=== PATIENT | male | born 1965 | race Caucasian/White ===

== ENCOUNTER 2016-10-21 12:06 | Outpatient (CLI) ==
[2016-10-21 13:49] LABS: BASOPHILS % (AUTO) 0.6 % (0.0-3.0); EOSINOPHILS # (AUTO) 0.1 K/ul (0.0-0.7); EOSINOPHILS % (AUTO) 1.3 % (0.0-7.0); HEMOGLOBIN 16.3 g/dl (14.0-18.0); IMMATURE GRANULOCYTE % (AUTO) 0.4 % (0.0-5.0); LYMPHOCYTES # (AUTO) 2.5 K/uL (0.60-3.4); LYMPHOCYTES % (AUTO) 35.4 (10.0-50.0); MEAN CORPUSCULAR HEMOGLOBIN 27.6 pg (27.0-31.0); MEAN CORPUSCULAR VOLUME 81.2 fl (80.0-94.0); MONOCYTES # (AUTO) 0.3 K/uL (0.4-2.0); MONOCYTES % (AUTO) 4.5 (0-10); NEUTROPHILS # (AUTO) 4.1 K/ul (2.0-6.9); NEUTROPHILS % (AUTO) 57.8; PLATELET COUNT 192 10^3/uL (140-440); RED BLOOD COUNT 5.91 10^6/ul (4.70-6.10); WHITE BLOOD COUNT 7.11 K/ul (4.2-10.2)
[2016-10-21 14:05] LABS: ALBUMIN 3.9 g/dL (3.4-5.0); ALBUMIN/GLOBULIN RATIO 0.98; ANION GAP 15.1; BILIRUBIN,TOTAL 0.39 mg/dL (0.00-1.20); BUN/CREATININE RATIO 13.25; CALCIUM 9.4 mg/dL (8.2-10.2); CHOL/HDL RATIO 5.5 (4.5-6.4); CREATININE 0.83 mg/dL (0.60-1.10); POTASSIUM 4.1 mmol/L (3.5-5.1); TOTAL PROTEIN 7.9 g/dL (6.4-8.2)
[2016-10-21 14:36] LABS: BILIRUBIN,URINE Negative (NEGATIVE); KETONES,URINE Negative (NEGATIVE); LEUKOCYTE ESTERASE ,URINE Negative (NEGATIVE); NITRITE,URINE Negative (NEGATIVE); PROTEIN,URINE Negative (NEGATIVE); URINE, BLOOD Trace-intact (NEGATIVE)
[2016-10-21 15:16] LABS: ADD URINE MICROSCOPIC YES
== END 2016-10-21 12:07 | disposition home or self-care (01) ==
LOC: LAB 12:06
PROVIDERS: ATTEND General Practice
DX: E88.81 Metabolic syndrome and other insulin resistance (principal); I10 Essential (primary) hypertension; Z79.899 Other long term (current) drug therapy
CPT/HCPCS: 36415; 80053; 80061; 81001; 85025

== ENCOUNTER 2017-12-28 12:42 | Emergency (ER) ==
[2017-12-28 12:48] VITALS: BP 155/99; TEMP 97.7; BMI 40.8
--- NOTE | 2017-12-28 14:25 | ED.PDOC ---
General ED Provider: Dr. ANTIONE LUA Chief Complaint: Tooth Problem Stated Complaint: pain to right upper teeth and gums. states today woke with swelling. Time Seen by Physician: 13:10 Mode of Arrival: Walk-In Information Source: Patient Exam Limitations: No limitations [facility] Nursing and Triage Documentation Reviewed and Agree: Yes Does patient meet sepsis criteria?: No If yes, has appropriate treatment been initiated?: No System Inflammatory Response Syndrome: Not Applicable Sepsis Protocol: For patient's 13 years and over: Temp is 96.8 and below OR 101 and greater Pulse >90 BPM Resp >20/minute Acutely Altered Mental Status Are patient's symptoms suggestive of a new infection, such as: -Pneumonia -Skin, Soft Tissue -Endocarditis -UTI -Bone, Joint Infection -Implantable Device -Acute Abdominal Infection -Wound Infection -Meningitis -Blood Stream Catheter Infection -Unknown EENT Complaint Exam - Dental/Oral Complaint/Exam Mechanism of Injury: No known trauma Symptoms Are: Still present Timing: Constant Initial Severity: Moderate Current Severity: Mild Character: Reports: Dull, Aching Aggravating: Reports: Cold, Chewing Alleviating: Reports: Cold, OTC Meds Associated Signs and Symptoms: Reports: Swelling Related History: Reports: Similar episode Cardiac Risk Factors: Reports: None Dental/Oral Surgical History: Reports: None Tooth Findings: Present: Percussion tenderness Cervical Lymphadenopathy Present: No Facial Swelling Present: No Dysphagia Present: No Drooling Present: No Asymmetrical Tonsillar Swelling Present: No Uvula Midline: No Olga Lidia-tonsillar Fluctuence: No Trismus Present: No Palatal Petechiae Present: No Scarlatinaform Rash Present: No Lesions: Absent: Lip, Gums [place]: Absent: Lip, Gums Vesicles: Absent: Lip, Gums Differential Diagnoses: Dental Abcess, Odontogenic Pain, Periodontic Disease Review of Systems - Review Of Systems Constitutional: Reports: No symptoms Eyes: Reports: No symptoms Ears, Nose, Mouth, Throat: Reports: No symptoms Respiratory: Reports: No symptoms Cardiac: Reports: No symptoms GI: Reports: No symptoms : Reports: No symptoms Musculoskeletal: Reports: No symptoms Skin: Reports: No symptoms Neurological: Reports: No symptoms Endocrine: Reports: No symptoms Hematologic/Lymphatic: Reports: No symptoms All Other Systems: Reviewed and Negative Past Medical History - Past Medical History Previously Healthy: Yes Endocrine: Reports: None Cardiovascular: Reports: None Respiratory: Reports: None Hematological: Reports: None Gastrointestinal: Reports: None Genitourinary: Reports: None Neuro/Psych: Reports: None Musculoskeletal: Reports: None Cancer: Reports: None - Surgical History General Surgical History: Reports: None - Family History Family History: Reports: None - Social History Smoking Status: Current every day smoker Hx Substance Use: No Alcohol Screening: None Physical Exam - Physical Exam Appearance: Well-appearing, No pain distress, Well-nourished Eyes: XENIA, EOMI, Conjunctiva clear ENT: Ears normal, Nose normal, Oropharynx normal, Erythema (mouth and dental pain ) Respiratory: Airway patent, Breath sounds clear, Breath sounds equal, Respirations nonlabored Cardiovascular: RRR, Pulses normal, No rub, No murmur GI/: Soft, Nontender, No masses, Bowel sounds normal, No Organomegaly Musculoskeletal: Normal strength, ROM intact, No edema, No calf tenderness Skin: Warm, Dry, Normal color Neurological: Sensation intact, Motor intact, Reflexes intact, Cranial nerves intact, Alert, Oriented Psychiatric: Affect appropriate, Mood appropriate Critical Care Note - Critical Care Note Total Time (mins): 0 Course - Course Hematology/Chemistry: 12/28/17 14:55 12/28/17 14:55 Vital Signs: Temp Pulse Resp BP Pulse Ox 12/28/17 12:43 97.7 F 76 20 155/99 H 98 Departure - Departure Time of Disposition: 04:00 Disposition: HOME SELF-CARE Discharge Problem: Dental abscess Instructions: Dental Abscess (ED) Condition: Fair Pt referred to PMD for follow-up: Yes IPMP verified?: Yes Additional Instructions: Rinse mouth with warm salt water several times dailiy Seek expert dental care Prescriptions: Hydrocodone/Acetaminophen [[place] 10-325 Tablet] 1 each PO Q6HR #15 tablet Amoxicillin/Potassium Clav [Augmentin 875-125 mg Tab] 1 tab PO Q12HR #20 tablet Allergies/Adverse Reactions: Allergies No Known Allergies Allergy (Verified 12/28/17 12:47) Home Medications: Ambulatory Orders Aspirin [Aspir 81] 81 mg PO DAILY tab-cap 05/01/15 Amoxicillin/Potassium Clav [Augmentin 875-125 mg Tab] 1 tab PO Q12HR #20 tablet 12/28/17 Hydrocodone/Acetaminophen [[place] 10-325 Tablet] 1 each PO Q6HR #15 tablet Disposition Discussed With: Patient
[2017-12-28] MEDS ORDERED: UNASYN 3 GM in SODIUM CHLORIDE 100 ML IV STA (14:32)
[2017-12-28] MEDS ORDERED: DILAUDID 2 MG/ML SDV IVP STA (14:33)
[2017-12-28] MEDS ORDERED: UNASYN ONE (14:50)
--- NOTE | 2017-12-28 15:33 | CT ---
EXAM: CT scan of the facial bones without contrast HISTORY: Facial swelling TECHNIQUE: Helical imaging of the facial bones was performed without contrast. 3 mm thin axial imag es and coronal and sagittal reconstructions were provided for interpretation. Comparison none. FINDINGS: There is mild right malar soft tissue swelling and right periorbital soft tissue swelling. The orbital floor appear intact. No acute fractures are seen within the medial and lateral lemus o f the orbits. The nasal bones and zygoma appear intact. The paranasal sinuses and mastoid air cells are clear. There is additional soft tissue swelling seen at the level of the maxilla on the right. T he apical lucent changes are seen along the dentition of the maxilla. No definite fluid collections are seen. The parotid and submandibular glands are normal. The nasopharynx, tonsils, tongue base and floor the mouth and epiglottis appear normal. IMPRESSION: There is mild right-sided facial swelling as described above most likely due to odontoge rama infection. Periapical lucent changes are seen along the dentition of the maxilla. No definite f luid collections are seen.
== END 2017-12-28 16:40 | disposition home or self-care (01) ==
LOC: ED 12:42
DX: K04.7 Periapical abscess without sinus (principal); F17.210 Nicotine dependence, cigarettes, uncomplicated
CPT/HCPCS: 36415; 80053; 85025; 87040; 96365; 96375; 99283